=== PATIENT | female | born 2000 | race Caucasian/White ===

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

== ENCOUNTER 2022-02-03 12:05 | Outpatient (CLI) | payer BC, SELFPAY | END 2022-02-03 12:06 | disposition home or self-care (01) | LOC: LBO 12:06 | PROVIDERS: PCP Nurse Practitioner Pediatrics | DX: D64.9 Anemia, unspecified (principal) | CPT/HCPCS: 36415; 80053; 82607; 82728; 82746; 84439; 84443; 85025 ==

== ENCOUNTER 2022-02-12 01:54 | Outpatient (RCR) | payer BC, SELFPAY | END 2022-02-14 23:59 | disposition home or self-care (01) | LOC: INF 01:54 | PROVIDERS: PCP Nurse Practitioner Pediatrics | DX: D50.9 Iron deficiency anemia, unspecified (principal); R55 Syncope and collapse | CPT/HCPCS: 96365; J1756 ==

== ENCOUNTER 2022-05-20 03:21 | Outpatient (CLI) | payer BC, SELFPAY | END 2022-05-20 03:22 | disposition home or self-care (01) | LOC: LBO 03:22 | DX: D64.9 Anemia, unspecified (principal); F41.8 Other specified anxiety disorders | CPT/HCPCS: 36415; 82728; 84439; 84443; 85025 ==

== ENCOUNTER 2022-05-21 02:58 | Outpatient (RCR) | payer BC, SELFPAY | END 2022-06-14 23:59 | disposition home or self-care (01) | LOC: INF 02:58 | DX: D50.9 Iron deficiency anemia, unspecified (principal) | CPT/HCPCS: 96365; J1756 ==

== ENCOUNTER 2022-08-06 11:03 | Outpatient (CLI) | payer BC, SELFPAY | END 2022-08-06 11:04 | disposition home or self-care (01) | LOC: LBO 11:03 | DX: D64.9 Anemia, unspecified (principal); R10.9 Unspecified abdominal pain; R55 Syncope and collapse; Z79.899 Other long term (current) drug therapy; R79.89 Other specified abnormal findings of blood chemistry | CPT/HCPCS: 36415; 80053; 80061; 82784; 83516; 82728; 85025 ==

== ENCOUNTER 2022-11-16 04:31 | Outpatient (CLI) | payer BC, SELFPAY | END 2022-11-16 04:32 | disposition home or self-care (01) | LOC: LBO 04:31 | DX: R55 Syncope and collapse (principal) | CPT/HCPCS: 36415; 82607; 82728; 85025 ==

== ENCOUNTER 2023-02-22 13:49 | Outpatient (CLI) | payer BC, SELFPAY ==
--- OUTSIDE RECORDS SUMMARY | 2023-02-22 13:51 | XMS_ITS | Continuity of Care Document ---
Author Name Unknown Organization [facility] Address Unknown Care Team Providers Care Molder Machine Name Role Phone No Local PCP, No Local PCP Primary Care Physicia n Unavailable Encounter Date(s): 11/01/21 - 11/01/21 [facility] [address], [place] [address] Discharge Disposition: Home or Self Care Attending Physician: RAY BATES NP Admitting Physician: RAY BATES NP Allergies, Adverse Reactions, Alerts No Known Medication Allergies Assessment and Plan Diagnostic Tests Pending * Chlamydia Trachomatis PCR 11/01/21 * Neisseria gonorrhoeae PCR 11/01/21 Medications ibuprofen 800 mg oral tablet 800 mg = 1 tab(s), Oral, TID, PRN PRN: for pain, # 30 tab(s), 0 Refill(s) Start Date: 11/01/21 Status: Ordered Iron 100 Plus oral tablet 0 Refill(s) Start Date: 11/01/21 Status: Ordered methylphenidate 36 mg/24 hr oral tablet, extended release 36 mg = 1 tab(s), Oral, qAM, 0 Refill(s) Start Date: 11/01/21 Status: Ordered sertraline 100 mg oral tablet 200 mg = 2 tab(s), Oral, Daily, # 30 tab(s), 0 Refill(s) Start Date: 11/01/21 Status: Ordered Vienva 100 mcg-20 mcg oral tablet TAKE ONE TABLET BY MOUTH EVERY DAY Start Date: 11/01/21 Status: Ordered Problem List Condition Effective Dates Status Health Status Inform ant Menorrhagia(Confirmed) Active Syncope(Confirmed) Active Results Laboratory List Name Date .Estimated Glomerular Filtration Rate Auto Differential 11/01/21 Basic Metabolic Panel 11/01/21 CBC Auto Diff reflex Manual Diff 11/01/21 Thyroid Stimulating Hormone 11/01/21 Most recent to oldest [Reference Range]: 1 AGAP 9 *NA* (11/01/21 12:00 PM) RBC [4.00-5.20 x10(6)/mcL] 4.54 x10(6)/m cL 1 (11/01/21 12:00 PM) RDW [11.5-14.5 %] 16.9 % *HI* (11/01/21 12:00 PM) Sodium Level [136-145 mmol/L] 136 mmol/L (11/01/21 12:00 PM) TSH [0.360-3.740 mcIU/mL] 2.390 mcIU/mL (11/01/21 12:00 PM) CO2 [21-32 mmol/L] 24 mmol/L (11/01/21:00 PM) Hct [36.0-46.0 %] 36.8 % 2 (11/01/21 12:00 PM) Hgb [12.4-14.8 gm/dL] 11.1 gm/dL 3 *LOW* (11/01/21 12:00 PM) MCH [26.0-34.0 pg] 24.4 pg *LOW* (11/01/21 12:00 PM) MCHC [31.0-37.0 gm/dL] 30.2 gm/dL *LOW* (11/01/21 12:00 PM) MCV [80-100 fL] 81 fL (11/01/21 12:00 PM) MPV [9.2-12.7 fL] 12.0 fL (11/01/21 12:00 PM) Glucose Level [74-106 mg/dL] 75 mg/dL (11/01/21 12:00 PM) Platelet [150-350 x10(3)/mcL] 345 x10(3) /mcL (11/01/21 12:00 PM) Potassium Level [3.5-5.1 mmol/L] 4.0 mmo l/L (11/01/21 12:00 PM) WBC [4.5-13.0 x10(3)/mcL] 7.0 x10(3)/mcL (11/01/21 12:00 PM) BUN [7-18 mg/dL] 8 mg/dL (11/01/21 12:00 PM) Calcium Level [8.5-10.1 mg/dL] 9.3 mg/dL (11/01/21 12:00 PM) Chloride [98-107 mmol/L] 107 mmol/L (11/01/21 12:00 PM) eGFR AA >60 mL/min/1.73 m2 *NA* (11/01/21 12:00 PM) eGFR CINDY >60 mL/min/1.73 m2 *NA* (11/01/21 12:00 PM) Neutrophil Absolute [1.50-7.80 x10(3)/mc L] 3.64 x10(3)/mcL (11/01/21 12:00 PM) Lymphocyte Absolute [1.30-6.30 x10(3)/mc L] 2.67 x10(3)/mcL (11/01/21 12:00 PM) Monocyte Absolute 0.50 x10(3)/mcL *NA* (11/01/21 12:00 PM) Eosinophil Absolute 0.11 x10(3)/mcL *NA* (11/01/21 12:00 PM) Basophil Absolute 0.03 x10(3)/mcL *NA* (11/01/21 12:00 PM) Imm Gran Absolute 0.01 /mcL *NA* (11/01/21 12:00 PM) NRBC % [0.0-0.2 %] 0.0 % (11/01/21 12:00 PM) Eosinophil Auto [1.0-4.0 %] 1.6 % (11/01/21 12:00 PM) Immature Granulocyte Auto 0 % *NA* (11/01/21 12:00 PM) Lymphocyte Auto [28.0-48.0 %] 38.4 % (11/01/21 12:00 PM) Monocyte Auto [3.0-10.0 %] 7.2 % (11/01/21 12:00 PM) Neutrophil Auto [28.0-78.0 %] 52.3 % (11/01/21 12:00 PM) Basophil Auto [0.0-2.0 %] 0.4 % (11/01/21 12:00 PM) Creatinine [0.6-1.3 mg/dL] 0.9 mg/dL (11/01/21 12:00 PM) 1Result Comment: Reference range changed due to change in patient's sex at 16:32:31. Normal Low changed from 4.00 to 4.50. Normal High changed from 5.20 to 5.90. Result flag not changed. Reference range changed due to change in patient's sex at 16:33:26. Normal Low changed from 4.50 to 4.00. Normal High changed from 5.90 to 5.20. Result flag not changed. 2Result Comment: Reference range changed due to change in patient's sex at 16:32:31. Normal Low changed from 36.0 to 41.0. Normal High changed from 46.0 to 53.0. Result flag changed from within range to L. Reference range changed due to change in patient's sex at 16:33:26. NormalLow changed from 41.0 to 36.0. Normal High changed from 53.0 to 46.0. Result flag changed from L towithin range. 3Result Comment: Reference range changed due to change in patient's sex at 16:32:31. Normal Low changed from 12.4 to 13.2. Normal High changed from 14.8 to 15.6. Result flag not changed. Reference range changed due to change in patient's sex at 16:33:26. Normal Low changed from 13.2 to 12.4. Normal High changed from 15.6 to 14.8. Result flag not changed. Social History Social History Type Response Sex Female Care Team Care Team Personnel Name: No Local PCP No Local PCP, Med Service: NO LOCAL PCP Member Role: Primary Care Physician Care Team Related Persons Name: MAGDALENA NADER Address: [address], [id number] Name: CONNERIRVING Carmona Address: Home [address], [id number] Name: FEMI TRACEY
--- OUTSIDE RECORDS SUMMARY | 2023-02-22 13:51 | XMS_ITS | Continuity of Care Document ---
Author Name Unknown Organization [facility] Address Unknown Care Team Providers Care Block Breaker Name Role Phone No Local PCP, No Local PCP Primary Care Physicia n Unavailable Encounter Date(s): 11/01/21 - 11/02/21 [facility] [address], [place] [address] Encounter Diagnosis Orthostatic syncope(Discharge Diagnosis) - 11/02/21 Syncope(Discharge Diagnosis) - 11/01/21 Discharge Disposition: Home or Self Care Attending Physician: PATRICIA BENÍTEZ DO Attending Physician: DOMENICA CHUA MD Admitting Physician: Rancho Bush MD Allergies, Adverse Reactions, Alerts No Known Allergies Functional Status 11/02/21 ADLs Independent Medications ibuprofen 800 mg oral tablet 800 mg = 1 tab(s), Oral, TID, PRN PRN: for pain, # 30 tab(s), 0 Refill(s) Start Date: 11/01/21 Status: Ordered Iron 100 Plus oral tablet 1 tab(s), Oral, qAM Start Date: 11/02/21 Status: Ordered methylphenidate 36 mg/24 hr oral tablet, extended release 36 mg = 1 tab(s), Oral, qAM, take on school days only do not crush or chew, 0 Refill(s) Start Date: 11/01/21 Status: Ordered sertraline 100 mg oral tablet 200 mg = 2 tab(s), Oral, qAM Start Date: 11/02/21 Status: Ordered Vienva 100 mcg-20 mcg oral tablet 1 tab(s), Oral, qAM Start Date: 11/01/21 Status: Ordered Mental Status 11/02/21 Level of Consciousness Alert Orientation Assessment Oriented x 4 Problem List Condition Effective Dates Status Health Status Inform ant Menorrhagia(Confirmed) Active Syncope(Confirmed) Active Results Laboratory List Name Date Ferritin 11/02/21 Iron Level 11/02/21 Drug Screen Urine (Urine Tox Screen) 10/16 09/05 Urinalysis Microscopic Add On Only Urinalysis Reflex Microscopic, Culture i f 11/01/21 .Estimated Glomerular Filtration Rate Auto Differential 11/01/21 CBC Auto Diff reflex Manual Diff 11/01/21 Comprehensive Metabolic Panel 11/01/21 Creatine Kinase (CPK) 11/01/21 HCG Quantitative 11/01/21 Magnesium Level 11/01/21 Most recent to oldest [Reference Range]: 1 UA Appear Clear *NA* (11/01/21 6:10 PM) Bacteria Rare *ABN* (11/01/21 6:10 PM) Benzodiazepines Screen Not Detected *NA* (11/01/21 6:10 PM) UA Bili Negative *NA* (11/01/21 6:10 PM) UA Blood Negative *NA* (11/01/21 6:10 PM) Cocaine Screen Not Detected *NA* (11/01/21 6:10 PM) UA Color Yellow *NA* (11/01/21 6:10 PM) UA Glucose Negative *NA* (11/01/21 6:10 PM) UA Ketones Negative *NA* (11/01/21 6:10 PM) UA Leuk Est Trace *ABN* (11/01/21 6:10 PM) UA Nitrite Negative *NA* (11/01/21 6:10 PM) Opiate Screen Not Detected *NA* (11/01/21 6:10 PM) Phencyclidine Screen Not Detected *NA* (11/01/21 6:10 PM) UA Protein Negative *NA* (11/01/21 6:10 PM) Red Blood Cells <2 *NA* (11/01/21 6:10 PM) UA Urobilinogen 0.2 1 (11/01/21 6:10 PM) White Blood Cells <1 *NA* (11/01/21 6:10 PM) Microscopic Indicated Yes *NA* (11/01/21 6:10 PM) Casts Not Present *NA* (11/01/21 6:10 PM) Tricyclics Screen Not Detected *NA* (11/01/21 6:10 PM) Amphetamines Screen Not Detected *NA* (11/01/21 6:10 PM) Barbiturates Screen Not Detected *NA* (11/01/21 6:10 PM) T-Cannabinol Screen Not Detected *NA* (11/01/21 6:10 PM) Methamphetamines Screen Not Detected *NA* (11/01/21 6:10 PM) AGAP 8 *NA* (11/01/21 5:21 PM) A/G Ratio 0.9 *NA* (11/01/21 5:21 PM) BUN/Creat Ratio 9 *NA* (11/01/21 5:21 PM) RBC [4.00-5.20 x10(6)/mcL] 4.23 x10(6)/m cL (11/01/21 5:21 PM) RDW [11.5-14.5 %] 16.5 % *HI* (11/01/21 5:21 PM) Sodium Level [136-145 mmol/L] 138 mmol/L (11/01/21 5:21 PM) Total Protein [6.4-8.2 gm/dL] 7.6 gm/dL (11/01/21 5:21 PM) AST [15-37 IU/L] 17 IU/L (11/01/21 5:21 PM) Bili Total [0.20-1.00 mg/dL] 0.25 mg/dL (11/01/21 5:21 PM) Total CK [26-192 IU/L] 61 IU/L (11/01/21 5:21 PM) CO2 [21-32 mmol/L] 26 mmol/L (11/01/21 5:21 PM) Ferritin Level [8.0-252.0 ng/mL] 3.2 ng/ mL *LOW* (11/02/21 11:08 AM) UA pH [5.0-9.0] 7.5 (11/01/21 6:10 PM) Albumin Level [3.4-5.0 gm/dL] 3.7 gm/dL (11/01/21 5:21 PM) Alk Phos [48-129 unit/L] 81 unit/L (11/01/21 5:21 PM) ALT [13-61 IU/L] 24 IU/L (11/01/21 5:21 PM) Hct [36.0-46.0 %] 33.2 % *LOW* (11/01/21 5:21 PM) Hgb [12.4-14.8 gm/dL] 10.2 gm/dL *LOW* (11/01/21: PM) Iron [50-170 mcg/dL] 77 mcg/dL (11/02/21 11:08 AM) Magnesium [1.6-2.3 mg/dL] 2.1 mg/dL (11/01/21: PM) MCH [26.0-34.0 pg] 24.1 pg *LOW* (11/01/21 PM) MCHC [31.0-37.0 gm/dL] 30.7 gm/dL *LOW* (11/01/21: PM) MCV [80-100 fL] 79 fL *LOW* (11/01/21 PM) MPV [9.2-12.7 fL] 11.1 fL (11/01/21: PM) Glucose Level [74-106 mg/dL] 104 mg/dL (11/01/21: PM) Platelet [150-350 x10(3)/mcL] 335 x10(3) /mcL (11/01/21: PM) Potassium Level [3.5-5.1 mmol/L] 3.6 mmo l/L (11/01/21: PM) UA Spec Grav [1.000-1.060] 1.006 (11/01/21 6:10 PM) WBC [4.5-13.0 x10(3)/mcL] 7.7 x10(3)/mcL (11/01/21: PM) BUN [7-18 mg/dL] 7 mg/dL (11/01/21: PM) Calcium Level [8.5-10.1 mg/dL] 9.1 mg/dL (11/01/21: PM) Chloride [98-107 mmol/L] 108 mmol/L *HI* (11/01/21: PM) hCG Qnt [1-3 mIU/mL] <1 mIU/mL (11/01/21: PM) eGFR AA >60 mL/min/1.73 m2 *NA* (11/01/21 PM) eGFR CINDY >60 mL/min/1.73 m2 *NA* (11/01/21 5:21 PM) Neutrophil Absolute [1.50-7.80 x10(3)/mc L] 3.96 x10(3)/mcL (11/01/21 5:21 PM) Lymphocyte Absolute [1.30-6.30 x10(3)/mc L] 2.93 x10(3)/mcL (11/01/21 5:21 PM) Monocyte Absolute 0.61 x10(3)/mcL *NA* (11/01/21 5:21 PM) Eosinophil Absolute 0.11 x10(3)/mcL *NA* (11/01/21 5:21 PM) Basophil Absolute 0.03 x10(3)/mcL *NA* (11/01/21 5:21 PM) Imm Gran Absolute 0.01 /mcL *NA* (11/01/21 5:21 PM) NRBC % [0.0-0.2 %] 0.0 % (11/01/21 5:21 PM) Methadone Screen Not Detected *NA* (11/01/21 6:10 PM) Culture Indicated Not Indicated *NA* (11/01/21 6:10 PM) Osmol Calculated 274 mOsm/kg *NA* (11/01/21 5:21 PM) Eosinophil Auto [1.0-4.0 %] 1.4 % (11/01/21 5:21 PM) Immature Granulocyte Auto 0 % *NA* (11/01/21 5:21 PM) Lymphocyte Auto [28.0-48.0 %] 38.3 % (11/01/21 5:21 PM) Monocyte Auto [3.0-10.0 %] 8.0 % (11/01/21 5:21 PM) Neutrophil Auto [28.0-78.0 %] 51.8 % (11/01/21 5:21 PM) Basophil Auto [0.0-2.0 %] 0.4 % (11/01/21 5:21 PM) Creatinine [0.6-1.3 mg/dL] 0.8 mg/dL (11/01/21 5:21 PM) Oxycodone Screen Not Detected *NA* (11/01/21 6:10 PM) Buprenorphine Screen Not Detected *NA* (11/01/21 6:10 PM) UA Epithelial Cells Not Present *NA* (11/01/21 6:10 PM) 1Result Comment: Urobilinogen result is equal to the Semiquantitative Result of: NORMAL Radiology Reports * Exam Date Time Procedure Performing Provider Status 11/01/21 6:[address] Head or Brain w/o [place] [address] PROCEDURE: [place] [address] CLINICAL INDICATION: seizure COMPARISON: None available TECHNIQUE: Axial CT images of the brain from skull base to vertex, including portions of the face and sinuses, were obtained without contrast. Coronal and sagittal reformatted images were obtained. DLP DOSE: 979.5 (mGy.cm) FINDINGS: Hemorrhage: No intracranial hemorrhage Brain: Unremarkable. No evidence of acute infarction, mass, or edema. Extra-axial spaces: No abnormal extra-axial fluid collection or mass. Ventricles: Unremarkable. No ventriculomegaly. Bones: No acute fracture. Sinuses: Unremarkable. No acute sinusitis Mastoid air cells/inner ears: Clear. IMPRESSION: No acute intracranial abnormality. Electronically Signed by: Chuck Antony MD 11/02/2021 8:05 AM Vital Signs Most recent to oldest [Reference Range]: 1 2 3 Temperature Oral [35.8-37.3 DegC] 37.3 DegC (11/01/21 3:08 PM) Temperature Temporal Artery [36.3-37.8 DegC] 37.1 DegC (11/02/21 3:18 PM) 37.7 DegC (11/02/21 12:30 PM) 37.3 DegC (11/02/21 7:25 AM) Peripheral Pulse Rate [60-100 bpm] 99 bpm (11/02/21 3:18 PM) 79 bpm (11/02/21 12:30 PM) 92 bpm (11/02/21 9:50 AM) Heart Rate Monitored [60-100 bpm] 72 bpm (11/02/21 12:30 PM) 88 bpm (11/02/21 7:25 AM) 68 bpm (11/02/21 5:34 AM) Respiratory Rate [14-20 br/min] 16 br/min (11/02/21 3:18 PM) 16 br/min (11/02/21 12:30 PM) 16 br/min (11/02/21 7:25 AM) Blood Pressure [90-140/60-90 mmHg] 121/76mmHg (11/02/21 3:18 PM) 121/86mmHg (11/02/21 12:30 PM) 116/67mmHg (11/02/21 9:50 AM) Mean Arterial Pressure, Cuff 85 mmHg (11/02/21 3:18 PM) 93 mmHg (11/02/21 12:30 PM) 79 mmHg (11/02/21 9:50 AM) Blood Pressure 134/75mmHg (11/01/21 3:08 PM) Social History Social History Type Response Sex Female Hospital Discharge Instructions Patient Education 11/02/2021 14:06:52 Orthostatic Hypotension Orthostatic Hypotension Blood pressure is a measurement of how strongly, or weakly, your circulating blood is pressing against the nicholson of your arteries. Orthostatic hypotension is a drop in blood pressure that can happen when you change positions, such as when you go from lying down to standing. Arteries are blood vessels that carry blood from your heart throughout your body. When blood pressure is too low, you may not get enough blood to your brain or to the rest of your organs. Orthostatichypotension can cause light- headedness, sweating, rapid heartbeat, blurred vision, and fainting. These symptoms require further investigation into the cause. What are the causes? Orthostatic hypotension can be caused by many things, including: ??? Sudden changes in posture, such as standing up quickly after you have been sitting or lying down. ??? Loss of blood (anemia) or loss of body fluids (dehydration). ??? Heart problems, neurologic problems, or hormone problems. ??? . ??? Aging. The risk for this condition increases as you get older. ??? Severe infection (sepsis). ??? Certain medicines, such as medicines for high blood pressure or medicines that make the body lose excess fluids (diuretics). What are the signs or symptoms? Symptoms of this condition may include: ??? Weakness, light-headedness, or dizziness. ??? Sweating. ??? Blurred vision. ??? Tiredness (fatigue). ??? Rapid heartbeat. ??? Fainting, in severe cases. How is this diagnosed? This condition is diagnosed based on: ??? Your symptoms and medical history. ??? Your blood pressure measurements. Your health care provider will check your blood pressure whenyou are: ??? Lying down. ??? Sitting. ??? Standing. A blood pressure reading is recorded as two numbers, such as 120 over 80 (or 120/80). The first (top) number is called the systolic pressure. It is a measure of the pressure in your arteries as your heart beats. The second (bottom) number is called the diastolic pressure. It is a measure of the pressure in your arteries when your heart relaxes between beats. Blood pressure is measured in a unit called mmHg. Healthy blood pressure for most adults is 120/80 mmHg. Orthostatic hypotension is defined as a 20 mmHg drop in systolic pressure or a 10 mmHg drop in diastolic pressure within 3 minutes of standing. Other information or tests that may be used to diagnose orthostatic hypotension include: ??? Your other vital signs, such as your heart rate and temperature. ??? Blood tests. ??? An electrocardiogram (ECG) or echocardiogram. ??? A Holter monitor. This is a device you wear that records your heart rhythm continuously, usually for 24???48 hours. ??? Tilt table test. For this test, you will be safely secured to a table that moves you from a lying position to an upright position. Your heart rhythm and blood pressure will be monitored during the test. How is this treated? This condition may be treated by: ??? Changing your diet. This may involve eating more salt (sodium) or drinking more water. ??? Changing the dosage of certain medicines you are taking that might be lowering your blood pressure. ??? Correcting the underlying reason for the orthostatic hypotension. ??? Wearing compression stockings. ??? Taking medicines to raise your blood pressure. ??? Avoiding actions that trigger symptoms. Follow these instructions at home: Medicines Take fomv-eio-pqgvwys and prescription medicines only as told by your health care provider. ??? Follow instructions from your health care provider about changing the dosage of your current medicines, if this applies. ??? Do not stop or adjust any of your medicines on your own. Eating and drinking ??? Drink enough fluid to keep your urine pale yellow. ??? Eat extra salt only as directed. Do not add extra salt to your diet unless advised by your health care provider. ??? Eat frequent, small meals. ??? Avoid standing up suddenly after eating. General instructions ??? Get up slowly from lying down or sitting positions. This gives your blood pressure a chance to adjust. ??? Avoid hot showers and excessive heat as directed by your health care provider. ??? Engage in regular physical activity as directed by your health care provider. ??? If you have compression stockings, wear them as told. ??? Keep all follow-up visits. This is important. Contact a health care provider if: ??? You have a fever for more than 2???3 days. ??? You feel more thirsty than usual. ??? You feel dizzy or weak. Get help right away if: ??? You have chest pain. ??? You have a fast or irregular heartbeat. ??? You become sweaty or feel light-headed. ??? You feel short of breath. ??? You faint. ??? You have any symptoms of a stroke. BE FAST is an easy way to remember the main warning signs of a stroke: ??? B - Balance. Signs are dizziness, sudden trouble walking, or loss of balance. ??? E - Eyes. Signs are trouble seeing or a sudden change in vision. ??? F - Face. Signs are sudden weakness or numbness of the face, or the face or eyelid drooping on one side. ??? A - Arms. Signs are weakness or numbness in an arm. This happens suddenly and usually on one side of the body. ??? S - Speech. Signs are sudden trouble speaking, slurred speech, or trouble understanding what people say. ??? T - Time. Time to call emergency services. Write down what time symptoms started. ??? You have other signs of a stroke, such as: ??? A sudden, severe headache with no known cause. ??? Nausea or vomiting. ??? Seizure. These symptoms may represent a serious problem that is an emergency. Do not wait to see if the symptoms will go away. Get medical help right away. Call your local emergency services (911 in the [place] Do not drive yourself to the hospital. Summary ??? Orthostatic hypotension is a sudden drop in blood pressure. ??? It can cause light-headedness, sweating, rapid heartbeat, blurred vision, and fainting. ??? Orthostatic hypotension can be diagnosed by having your blood pressure taken while lying down, sitting, and then standing. ??? Treatment may involve changing your diet, wearing compression stockings, sitting up slowly, adjusting your medicines, or correcting the underlying reason for the orthostatic hypotension. ??? Get help right away if you have chest pain, a fast or irregular heartbeat, or symptoms of a stroke. This information is not intended to replace advice given to you by your health care provider. Make sure you discuss any questions you have with your health care provider. Document Revised: 04/17/2021 Document Reviewed: 04/17/2021 [employer] Patient Education ?? 2021 [employer]. 11/02/2021 14:06:52 Syncope, Bokj-bh-Aevt Syncope Syncope is when you pass out (faint) for a short time. It is caused by a sudden decrease in blood flow to the brain. Signs that you may be about to pass out include: ??? Feeling dizzy or light-headed. ??? Feeling sick to your stomach (nauseous). ??? Seeing all white or all black. ??? Having cold, clammy skin. If you pass out, get help right away. Call your local emergency services (911 in the [place] Do not drive yourself to the hospital. Follow these instructions at home: Watch for any changes in your symptoms. Take these actions to stay safe and help with your symptoms: Lifestyle ??? Do not drive, use machinery, or play sports until your doctor says it is okay. ??? Do not drink alcohol. ??? Do not use any products that contain nicotine or tobacco, such as cigarettes and e-cigarettes. If you need help quitting, ask your doctor. ??? Drink enough fluid to keep your pee (urine) pale yellow. General instructions ??? Take [id number]-[id number] and prescription medicines only as told by your doctor. ??? If you are taking blood pressure or heart medicine, sit up and stand up slowly. Spend a few minutes getting ready to sit and then stand. This can help you feel less dizzy. ??? Have someone stay with you until you feel stable. ??? If you start to feel like you might pass out, lie down right away and raise (elevate) your feetabove the level of your heart. Breathe deeply and steadily. Wait until all of the symptoms are gone. ??? Keep all follow-up visits as told by your doctor. This is important. Get help right away if: ??? You have a very bad headache. ??? You pass out once or more than once. ??? You have pain in your chest, belly, or back. ??? You have a very fast or uneven heartbeat (palpitations). ??? It hurts to breathe. ??? You are bleeding from your mouth or your bottom (rectum). ??? You have black or tarry poop (stool). ??? You have jerky movements that you cannot control (seizure). ??? You are confused. ??? You have trouble walking. ??? You are very weak. ??? You have vision problems. These symptoms may be an emergency. Do not wait to see if the symptoms will go away. Get medical help right away. Call your local emergency services (911 in the [place] Do not drive yourself to the hospital. Summary ??? Syncope is when you pass out (faint) for a short time. It is caused by a sudden decrease in blood flow to the brain. ??? Signs that you may be about to faint include feeling dizzy, light-headed, or sick to your stomach, seeing all white or all black, or having cold, clammy skin. ??? If you start to feel like you might pass out, lie down right away and raise (elevate) your feetabove the level of your heart. Breathe deeply and steadily. Wait until all of the symptoms are gone. This information is not intended to replace advice given to you by your health care provider. Make sure you discuss any questions you have with your health care provider. Document Revised: 03/13/2020 Document Reviewed: 03/16/2018 Else[employer] Patient Education ?? 2021 [employer] Physician Progress Note * SHILO SCHREIBER MD: PERFORM Event Display: Physician Progress Note Authored Date: [id number] Ms. Arsahd expressed to U staff that she has no intent to harm herself and has only had thoughts of doing so. She would not hurt herself in the hospital and denied any plans of doing so; therefore, 1:1 has been cancelled. Electronically Signed By: SHILO SCHREIBER MD Date and Time Signed: 11/01/21 22:35 EDT History and physical note * Rancho Bush MD: MODIFY Event Display: History and Physical Authored Date: [id number] PRIMARY CARE There is no local primary care provider. ADMISSION DIAGNOSIS Recurrent syncope. HISTORY OF PRESENT ILLNESS Ms. Arshad is a 21-year-old student at [employer] who comes to the Emergency Department because she has been having syncopal episodes. These have been occurring for at least the past several months, but have become more frequent over the past 1 to 2 weeks. She states that she have syncopal episodes up to 7 times daily. These are usually preceded by a prodromal symptoms of lightheadedness and feeling foggy and blurred vision. She occasionally is incontinent of urine during these episodes. They happen at rest, but more frequently when she is standing. She describes some bilateral sharp chest pain which can last for hours. She also has been experiencing some suprapubic discomfort and is scheduled for pelvic exam next month. She does have a history of menorrhagia and is taking an ethinyl estradiol- levonorgestrel and multivitamin with iron. She is also on methylphenidate daily for ADHD and on sertraline. PAST SURGICAL HISTORY Tonsillectomy. ALLERGIES NKDA. MEDICATIONS Include the medications listed above, which include, Vienva 1 tablet daily. Methylphenidate 36 mg q.a.m. Multivitamin with iron daily. Sertraline 200 mg daily. FAMILY HISTORY Ms. Arshad's sister had pediatric seizures, which resolved over time. There is no family history of sudden . 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 She is a theater major. She swims in the pool for up to an hour at a time. She does not smoke tobacco. She drinks an occasional glass of whiskey, but that does not seem to exacerbate her syncopal issues. PHYSICAL EXAMINATION VITAL SIGNS: Temperature 37.3 degrees, blood pressure 121/76, heart rate 76, respirations 17, pulse oximetry 100% on room air. Weight 68 kg, BMI 21.71. GENERAL: On exam, Ms. Arshad is a very pleasant young lady who appears comfortable and is awake, alert, and oriented. There is no facial droop and cranial nerves appear grossly intact. NECK: Supple with no lymphadenopathy. There are no carotid bruits heard. HEART: Regular rate and rhythm. No murmurs, rubs, or gallops. LUNGS: Clear to auscultation. ABDOMEN: Soft, nondistended with suprapubic tenderness to palpation. EXTREMITIES: Warm with no edema and she moves all extremities equally. LABORATORY DATA WBC of 7.7, hemoglobin 10.2, hematocrit 33.2 with an MCV of 79, platelets of 335. Comprehensive metabolic panel is normal. Total CK 61. Quantitative beta-HCG is less than 1. TSH is 2.390. Urine toxicology screen is negative. Urinalysis is negative. An ECG has sinus rhythm with normal axis, no ischemic changes seen. Head CT without contrast read by [facility] radiologist is normal. ASSESSMENT AND PLAN 1. Syncope. Ms. Arshad is a 21-year-old lady who has had been having multiple syncopal episodes. She has not injured herself in any of these and she appears to recover quickly from each episode, although they are presenting with more frequency. Differential diagnosis includes postural orthostatic tachycardia syndrome or some other form of orthostatic hypotension, cardiac outlet obstruction, seizure disorder, or possible anxiety reaction. The plan, which I discussed with the patient and her parents, who are at bedside, is to admit her for overnight monitoring on telemetry. I will ask for orthostatic vital signs to be measured several times. I will order an echocardiogram in the morning. I will also order an EEG, but if it is not possible to complete that tomorrow or if it has not been read by Neurology - who is not on site until November 04 - I think that it is still would likely be safe to discharge her, with a precaution that she currently not drive or not sit in a bath or swim unattended. 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 She will continue on her home dosing of her Vienva, which she will keep at bedside, along with methylphenidate, multivitamin with iron, and sertraline. 2. Deep vein thrombosis prophylaxis. Ms. Arshad is ambulatory and at low risk for deep vein thrombosis. She will be encouraged to be out of bed. CODE STATUS Ms. Arshad wishes to be a full code. TIME SPENT 25 minutes. HERMES/MedQ /[id number] cc: Electronically Signed By: Rancho Bush MD Date and Time Signed: 11/02/21 17:[address] Head WO contrast * Event Display: CT Head or Brain w/o IV Contrast Authored Date: [id number] PROCEDURE: [place] [id number] CLINICAL INDICATION: seizure COMPARISON: None available TECHNIQUE: Axial CT images of the brain from skull base to vertex, including portions of the face and sinuses, were obtained without contrast. Coronal and sagittal reformatted images were obtained. DLP DOSE: 979.5 (mGy.cm) FINDINGS: Hemorrhage: No intracranial hemorrhage Brain: Unremarkable. No evidence of acute infarction, mass, or edema. Extra-axial spaces: No abnormal extra-axial fluid collection or mass. Ventricles: Unremarkable. No ventriculomegaly. Bones: No acute fracture. Sinuses: Unremarkable. No acute sinusitis Mastoid air cells/inner ears: Clear. IMPRESSION: No acute intracranial abnormality. Electronically Signed by: Chuck Antony MD 11/02/2021 8:05 AM Care Team Care Team Personnel Name: No Local PCP No Local PCP, Med Service: NO LOCAL PCP Member Role: Primary Care Physician Name: Rancho Bush MD Position: Physician - Hospitalist Med Service: Hospitalists Member Role: Admitting Physician Address: Address: [address] [place] [address] Care Team Related Persons Name: NADER ARSHAD Address: Home [address] [place] [address], [phone] Name: DIANAVIDAIRVING HERNANDEZ Address: Home [address] [place] [address], [phone] Name: FEMI TRACEY
--- OUTSIDE RECORDS SUMMARY | 2023-02-22 13:51 | XMS_ITS | Continuity of Care Document ---
Author Name Unknown Organization [facility] Address Unknown Care Team Providers Care Heat Curer Name Role Phone No Local PCP, No Local PCP Primary Care Physicia n Unavailable Encounter Date(s): 03/10/22 - 03/10/22 [facility] [address] [place], [place] [address] Discharge Disposition: Home or Self Care Attending Physician: Estiven España PA-C Admitting Physician: Estiven España PA-C Allergies, Adverse Reactions, Alerts No Known Allergies Assessment and Plan Diagnostic Tests Pending * Transferrin 03/10/22 Medications ibuprofen 800 mg oral tablet 800 [...] Oral, qAM Start Date: 11/01/21 Status: Ordered Problem List Condition Effective Dates Status Health Status Inform ant Menorrhagia(Confirmed) Active Syncope(Confirmed) Active Results Laboratory List Name Date Ferritin (FERRITIN LEVEL) 03/10/22 Iron Binding Capacity Total (TIBC) Most recent to oldest [Reference Range]: 1 Iron Sat [16-50 %] 8 % *LOW* (03/10/22 4:23 PM) TIBC [250-450 mcg/dL] 311 mcg/dL (03/10/22 4:23 PM) Ferritin Level [8.0-252.0 ng/mL] 12.8 ng /mL (03/10/22 4:23 PM) Iron [50-170 mcg/dL] 25 mcg/dL *LOW* (03/10/22 4:23 PM) Social History Social History Type Response Sex Female Care Team Care Team Personnel Name: No Local PCP No Local PCP, Member Role: Primary Care Physician Care Team Related Persons Name: NADER NICHOLS Address: Home [address] [place] [address], [phone] Name: IRVING NICHOLS Address: Home [address] [place] [address], [phone] Name: FEMI INIGUEZ Address: [place]
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
== END 2023-02-22 13:50 | disposition home or self-care (01) ==
LOC: LBO 13:49
PROVIDERS: Visit Provider Student in an Organized Health Care Education/Training Program
DX: G90.A Postural orthostatic tachycardia syndrome [POTS] (principal)
CPT/HCPCS: 36415; 80053; 82728; 85025